=== PATIENT | male | born 1980 | race Caucasian/White ===

== ENCOUNTER → 2017-12-01 | Outpatient (CLI) | payer BC ==
--- NOTE | 2017-12-01 12:17 | ECHOS ---
STRESS ECHOCARDIOGRAM INDICATIONS: Chest pain. MEDICATIONS: Lisinopril. BASELINE HEART RATE: 75 BASELINE BLOOD PRESSURE: 116/68 MAXIMUM HEART RATE: 159 MAXIMUM BLOOD PRESSURE: 170/74 85% MPHR: 157 100% MPHR: 185 METS: 9.3 MAXIMUM STAGE REACHED: 3 TOTAL EXERCISE TIME: 7:55 CLINICAL INFORMATION: Patient was exercised for a total period of 7 minutes and 55 seconds. Peak heart rate of 159 was achieved. Maximum blood pressure of 170/74 mmHg was noted. Resting EKG shows normal sinus rhythm with normal p.r.n. interval and QRS duration and normal ST-T waves. No ST-segment depression suggestive of ischemia is noted. The baseline echocardiographic images reveals normal left ventricular chamber size with normal left ventricular systolic function in the immediate postexercise. Normal increase in the wall thickness and contractility is noted. FINAL IMPRESSION: This stress echocardiographic study is negative for stress-induced ischemia. EKG portion of the stress test is not suggestive of ischemia. Patient's exercise tolerance is average. MMODL / IJN: [id number] /
== END | disposition home or self-care (01) ==
LOC: RADNMMAIN 08:48
PROVIDERS: ATTEND Family Medicine
DX: R07.9 Chest pain, unspecified (principal)
CPT/HCPCS: 93351; Q9950

== ENCOUNTER → 2018-08-30 | Outpatient (CLI) | payer BC ==
--- NOTE | 2018-08-30 13:12 | XR ---
EXAMINATION TYPE: XR foot complete RT DATE OF EXAM: 08/30/2018 COMPARISON: NONE HISTORY: Pain TECHNIQUE: Three views are submitted. FINDINGS: The osseous structures are intact. There is no acute fracture or dislocation. There is arthropathy of the first MTP joint. Large spurs are seen involving the plantar surface of the calcaneus and the Achilles insertion. IMPRESSION: 1. Large calcaneal spurs. 2. First MTP joint arthropathy..
== END ==
LOC: RADXRYALE 12:34
PROVIDERS: ATTEND Internal Medicine
DX: M12.871 Other specific arthropathies, not elsewhere classified, right ankle and foot (principal)

== ENCOUNTER 2018-11-02 14:38 | Observation (INO) | payer BC ==
[2018-11-02] MEDS ORDERED: NITROGLYCERIN OINT 1 INCH/GM PACKET TOPICAL STA (15:37)
[2018-11-02] MEDS ORDERED: SODIUM CHLORIDE 0.9% 500 ML 500 ML IV STA (15:37)
[2018-11-02] MEDS ORDERED: ASPIRIN 81 MG PO STA (15:43)
--- NOTE | 2018-11-02 16:03 | ED ---
General Adult HPI - General Chief complaint: Shortness of Breath Stated complaint: chest pain Time Seen by Provider: 11/02/18 14:45 Source: patient, RN notes reviewed Mode of arrival: ambulatory Limitations: no limitations - History of Present Illness Initial comments: This is a 38-year-old male presents to the emergency department complaining of chest discomfort while exerting himself today. Patient states for the last couple of weeks she's been having some episodes of shortness of breath with exertion or when being in a very warm environment. Patient states today he went to work was lifting some 20 pounds items and states he began having chest pain mostly in the left side it was a heaviness sensation and he became short of breath and very diaphoretic. Patient states once he stopped working and rested the pain SUBSIDED as did the shortness of breath and sweating. Patient states he went to his family practice doctor and they wanted him to come to the emergency department immediately. Patient states she's been pain-free since. Calves are nontender there is no edema to the legs - Related Data Home Medications Medication Instructions Recorded Confirmed Ibuprofen [Motrin Ib] 400 mg PO TID PRN 11/02/18 11/02/18 Allergies Allergy/AdvReac Type Severity Reaction Status Date / Time No Known Allergies Allergy Verified 11/02/18 15:34 Review of Systems ROS Statement: Those systems with pertinent positive or pertinent negative responses have been documented in the HPI. ROS Other: All systems not noted in ROS Statement are negative. Past Medical History Past Medical History: Hypertension, Osteoarthritis (OA), Sleep Apnea/CPAP/BIPAP History of Any Multi-Drug Resistant Organisms: None Reported Past Surgical History: Hernia Repair Past Anesthesia/Blood Transfusion Reactions: No Reported Reaction Past Psychological History: No Psychological Hx Reported Smoking Status: Never smoker Past Alcohol Use History: Occasional Past Drug Use History: None Reported - Past Family History Mother Family Medical History: No Reported History General Exam - General Exam Comments Initial Comments: GENERAL: Patient is well-developed and well-nourished. Patient is nontoxic and well- hydrated and is in no acute distress. ENT: Neck is soft and supple. No significant lymphadenopathy is noted. Oropharynx is clear. Moist mucous membranes. Neck has full range of motion without eliciting any pain. EYES: The sclera were anicteric and conjunctiva were pink and moist. Extraocular movements were intact and pupils were equal round and reactive to light. Eyelids were unremarkable. PULMONARY: Unlabored respirations. Good breath sounds bilaterally. No audible rales rhonchi or wheezing was noted. CARDIOVASCULAR: There is a regular rate and rhythm without any murmurs gallops or rubs. ABDOMEN: Soft and nontender with normal bowel sounds. No palpable organomegaly was noted. There is no palpable pulsatile mass. SKIN: Skin is clear with no lesions or rashes and otherwise unremarkable. NEUROLOGIC: Patient is alert and oriented x3. Cranial nerves II through XII are grossly intact. Motor and sensory are also intact. Normal speech, volume and content. Symmetrical smile. MUSCULOSKELETAL: Normal extremities with adequate strength and full range of motion. No lower extremity swelling or edema. No calf tenderness. LYMPHATICS: No significant lymphadenopathy is noted PSYCHIATRIC: Normal psychiatric evaluation. Limitations: no limitations Course Vital Signs 11/02/18 14:41 Temperature 97.8 F Pulse Rate 85 Respiratory 18 Rate Blood Pressure 132/87 O2 Sat by Pulse 98 Oximetry Medical Decision Making - Medical Decision Making EKG shows normal sinus rhythm at 85 bpm LA interval is 160 QRS is 106 QT i nterval 364 QTC is 433. Patient's EKG shows no ST segment elevation or depression I went into the patient's room to reevaluate him in they noticed on the monitor the patient was in bigeminy she had repeat EKG repeat EKG showed sinus rhythm with frequent PVCs in a pattern of bigeminy rate was 86 bpm LA interval is 160 QRS is 108 QT interval 376 QTC is 449. Patient's EKG shows no ST segment eleva tion or depression or T wave abnormalities are noted. - Lab Data Result diagrams: 11/02/18 15:40 11/02/18 15:40 Lab Results 11/02/18 11/02/18 11/02/18 Range/Units 15:40 15:40 15:40 WBC 8.9 (3.8-10.6) k/uL RBC 5.42 (4.30-5.90) m/uL Hgb 16.6 (13.0-17.5) gm/dL Hct 48.9 (39.0-53.0) % MCV 90.2 (80.0-100.0) fL MCH 30.6 (25.0-35.0) pg MCHC 33.9 (31.0-37.0) g/dL RDW 12.9 (11.5-15.5) % Plt Count 233 (150-450) k/uL Neutrophils % 48 % Lymphocytes % 41 % Monocytes % 5 % Eosinophils % 4 % Basophils % 1 % Neutrophils # 4.3 (1.3-7.7) k/uL Lymphocytes # 3.7 (1.0-4.8) k/uL Monocytes # 0.5 (0-1.0) k/uL Eosinophils # 0.3 (0-0.7) k/uL Basophils # 0.1 (0-0.2) k/uL PT 9.5 (9.0-12.0) sec INR 0.9 (<1.2) APTT 23.7 (22.0-30.0) sec Sodium 140 (137-145) mmol/L Potassium 4.2 (3.5-5.1) mmol/L Chloride 103 (98-107) mmol/L Carbon Dioxide 27 (22-30) mmol/L Anion Gap 10 mmol/L BUN 12 (9-20) mg/dL Creatinine 0.67 (0.66-1.25) mg/dL Est GFR (CKD-EPI)AfAm >90 (>60 ml/min/1.73 sqM) Est GFR (CKD-EPI)NonAf >90 (>60 ml/min/1.73 sqM) Glucose 99 (74-99) mg/dL Calcium 9.8 (8.4-10.2) mg/dL Magnesium 2.1 (1.6-2.3) mg/dL Total Bilirubin 0.2 (0.2-1.3) mg/dL AST 50 (17-59) U/L ALT 42 (21-72) U/L Alkaline Phosphatase 60 (38-126) U/L Troponin I (0.000-0.034) ng/mL Total Protein 7.9 (6.3-8.2) g/dL Albumin 4.6 (3.5-5.0) g/dL 11/02/18 Range/Units 15:40 WBC (3.8-10.6) k/uL RBC (4.30-5.90) m/uL Hgb (13.0-17.5) gm/dL Hct (39.0-53.0) % MCV (80.0-100.0) fL MCH (25.0-35.0) pg MCHC (31.0-37.0) g/dL RDW (11.5-15.5) % Plt Count (150-450) k/uL Neutrophils % % Lymphocytes % % Monocytes % % Eosinophils % % Basophils % % Neutrophils # (1.3-7.7) k/uL Lymphocytes # (1.0-4.8) k/uL Monocytes # (0-1.0) k/uL Eosinophils # (0-0.7) k/uL Basophils # (0-0.2) k/uL PT (9.0-12.0) sec INR (<1.2) APTT (22.0-30.0) sec Sodium (137-145) mmol/L Potassium (3.5-5.1) mmol/L Chloride (98-107) mmol/L Carbon Dioxide (22-30) mmol/L Anion Gap mmol/L BUN (9-20) mg/dL Creatinine (0.66-1.25) mg/dL Est GFR (CKD-EPI)AfAm (>60 ml/min/1.73 sqM) Est GFR (CKD-EPI)NonAf (>60 ml/min/1.73 sqM) Glucose (74-99) mg/dL Calcium (8.4-10.2) mg/dL Magnesium (1.6-2.3) mg/dL Total Bilirubin (0.2-1.3) mg/dL AST (17-59) U/L ALT (21-72) U/L Alkaline Phosphatase (38-126) U/L Troponin I <0.012 (0.000-0.034) ng/mL Total Protein (6.3-8.2) g/dL Albumin (3.5-5.0) g/dL Disposition Clinical Impression: Chest pain, Bigeminy Disposition: ADMITTED IP TO THIS HOSP Referrals: Sonia Oviedo MD [Primary Care Provider] - 1-2 days Time of Disposition: 17:03
[2018-11-02 16:05] LABS: Basophils # (A) 0.1 k/uL (0-0.2); Basophils % (A) 1 %; Eosinophils # (A) 0.3 k/uL (0-0.7); Eosinophils % (A) 4 %; HCT 48.9 % (39.0-53.0); HGB 16.6 gm/dL (13.0-17.5); Lymphocytes # (A) 3.7 k/uL (1.0-4.8); Lymphocytes % (A) 41 %; MCH 30.6 pg (25.0-35.0); MCHC 33.9 g/dL (31.0-37.0); MCV 90.2 fL (80.0-100.0); Mean Platelet Volume 7.7; Monocytes # (A) 0.5 k/uL (0-1.0); Monocytes % (A) 5 %; Neutrophils # (A) 4.3 k/uL (1.3-7.7); Neutrophils % (A) 48 %; Platelet Count 233 k/uL (150-450); RBC 5.42 m/uL (4.30-5.90); RDW 12.9 % (11.5-15.5); WBC 8.9 k/uL (3.8-10.6)
[2018-11-02 16:14] LABS: ALT 42 U/L (21-72); AST 50 U/L (17-59); African American GFR (CKD) >90 (>60 ml/min/1.73 sqM); Albumin 4.6 g/dL (3.5-5.0); Alkaline Phosphatase 60 U/L (38-126); Anion Gap 10 mmol/L; Blood Urea Nitrogen 12 mg/dL (9-20); Calcium 9.8 mg/dL (8.4-10.2); Carbon Dioxide 27 mmol/L (22-30); Chloride 103 mmol/L (98-107); Glucose 99 mg/dL (74-99); Magnesium 2.1 mg/dL (1.6-2.3); Non-African American GFR(CKD) >90 (>60 ml/min/1.73 sqM); Potassium 4.2 mmol/L (3.5-5.1); Sodium 140 mmol/L (137-145); Total Bilirubin 0.2 mg/dL (0.2-1.3); Total Protein 7.9 g/dL (6.3-8.2)
[2018-11-02 16:19] LABS: INR 0.9 (<1.2); Partial Thromboplastin Time 23.7 sec (22.0-30.0); Prothrombin Time 9.5 sec (9.0-12.0)
--- NOTE | 2018-11-02 16:33 | XR ---
EXAMINATION TYPE: XR chest 2V DATE OF EXAM: 11/02/2018 COMPARISON: None INDICATION: Chest pain short of breath TECHNIQUE: Frontal and lateral views of the chest are obtained. FINDINGS: The heart size is normal. The pulmonary vasculature is normal. The lungs are clear. IMPRESSION: 1. No acute pulmonary process.
[2018-11-02] MEDS ORDERED: NITROGLYCERIN SL TABS 0.4 MG TAB SUBLINGUAL PRN (17:04)
[2018-11-02] MEDS ORDERED: IBUPROFEN 400 MG TAB PO PRN (18:19)
[2018-11-02 19:55] LABS: Appearance,Urine Clear (Clear); Bilirubin,Urine Negative (Negative); Blood,Urine Negative (Negative); Color,Urine Yellow; Glucose,Urine (UA) Negative (Negative); Ketones,Urine Negative (Negative); Leukocyte Esterase,Urine Trace (Negative); Mucus,Urine Rare /hpf; Nitrite,Urine Negative (Negative); PH, Urine 5.5 (5.0-8.0); Protein,Urine Negative (Negative); RBC,Urine 1 /hpf (0-5); Specific Gravity,Urine 1.024 (1.001-1.035); Squamous Epithelial Cell,Urine <1 /hpf (0-4); Urobilinogen,Urine <2.0 mg/dL (<2.0); WBC,Urine 8 /hpf (0-5)
[2018-11-02 20:02] LABS: Amphetamine Screen,Urine Not Detected (NotDetected); Barbiturate Screen,Urine Not Detected (NotDetected); Benzodiazepines Screen,Urine Not Detected (NotDetected); Cocaine Screen,Urine Not Detected (NotDetected); Methadone Screen, Urine Not Detected (NotDetected); Opiate Screen,Urine Not Detected (NotDetected); Oxycodone Screen, Urine Not Detected (NotDetected); Phencyclidine Screen,Urine Not Detected (NotDetected); Tricyclic Antidepressant,Urine Not Detected (NotDetected); Urn Cannabinoid Scrn Not Detected (NotDetected)
[2018-11-02] MEDS ORDERED: ALPRAZolam 0.25 MG TAB PO PRN (21:17)
[2018-11-02] MEDS: NITROGLYCERIN OINT 1 INCH/GM PACKET TOPICAL SCH ×2 (21:49→23:45)
--- NOTE | 2018-11-02 23:35 | HP ---
HISTORY AND PHYSICAL CHIEF COMPLAINT: 1. Chest pain, shortness of breath. 2. History of bigeminy. HISTORY OF PRESENT ILLNESS: This 38-year-old gentleman with a past medical history of multiple medical problems including history of hypertension, DJD, history of sleep apnea, being followed by Dr. Oviedo in the outpatient setting was complaining of chest pain, shortness of breath, the patient has had shortness of breath for the past several days on exertion and also environment. The patient is lifting some 20 pounds at weight at work and today the patient had chest pain which was felt in the anterior part of the chest and also shortness of breath. No history of any sweating or palpitations. Patient came to [facility] and was admitted for further evaluation and treatment. EKG showed ventricular bigeminy. Otherwise, there is no history of fever, rigors or chills. No history of headache, loss of consciousness or seizures. PAST MEDICAL HISTORY: Hypertension, DJD, sleep apnea. MEDICATIONS: Home medications are: Ibuprofen p.r.n. 400 mg. ALLERGIES: None. FAMILY HISTORY: No history of heart disease or strokes in the family. SOCIAL HISTORY: No history of smoking. Occasional alcohol intake. REVIEW OF SYSTEMS: ENT: No diminished vision. No diminished hearing. CARDIOVASCULAR system as mentioned earlier. RESPIRATION: As mentioned earlier. GI no nausea or vomiting. no dysuria. NERVOUS SYSTEM: No numbness or weakness. ALLERGY/IMMUNOLOGY: No asthma or hayfever. MUSCULOSKELETAL as mentioned earlier. HEMATOLOGY/ONCOLOGY: No history of anemia. ENDOCRINE: No history of diabetes or hypothyroidism. CONSTITUTIONAL: As mentioned earlier. DERMATOLOGY: Negative. RHEUMATOLOGY negative. PSYCHIATRY as mentioned earlier. PHYSICAL EXAMINATION: Alert and oriented times three. Pulse is 85, blood pressure 132/87, respiration 18, temperature 97.8, pulse ox 98% on room air. HEENT: Conjunctivae normal. NECK: No jugular venous distention. CARDIOVASCULAR: S1, S2 muffled. RESPIRATORY: Breath sounds diminished in the bases. No rhonchi. No crackles. ABDOMEN: Soft, obese, nontender. No mass palpable. LEGS: No edema. No swelling. NERVOUS SYSTEM as mentioned earlier. Moves all 4 limbs. No focal motor or sensory deficits. lymphatics: No lymph nodes palpable in the neck, axillae or groin. JOINTS: No active arthropathy. LABS: CBC and BMP within normal limits. Magnesium is also normal. ASSESSMENT: 1. Chest pain, shortness of breath for evaluation, rule out coronary artery disease. 2. Ventricular bigeminy. 3. History of hypertension. 4. History of degenerative joint disease. 5. Sleep apnea. 6. CPAP/BiPAP. 7. Obesity with body mass index 45. RECOMMENDATIONS AND DISCUSSION: In this 38-year-old gentleman with past medical history of multiple medical problems, we will monitor the patient closely, continue the current management, and symptomatic treatment. Otherwise, at this time, I recommend cardiology consultation rule out myocardial infarction. Unstable angina protocol. Otherwise, continue to monitor closely. Prognosis guarded because of multiple complex medical issues. A copy of dictation being forwarded to Dr. Oviedo who is the primary physician. I would also recommend D-dimer and if it is positive, a CT angio as well. MMODL / IJN: [id number] / MTDD
[2018-11-03 04:15] LABS: Basophils # (A) 0.1 k/uL (0-0.2); Basophils % (A) 1 %; Eosinophils # (A) 0.3 k/uL (0-0.7); Eosinophils % (A) 3 %; HCT 47.3 % (39.0-53.0); HGB 16.4 gm/dL (13.0-17.5); Lymphocytes # (A) 3.4 k/uL (1.0-4.8); Lymphocytes % (A) 38 %; MCHC 34.7 g/dL (31.0-37.0); MCV 92.2 fL (80.0-100.0); Mean Platelet Volume 7.6; Monocytes # (A) 0.4 k/uL (0-1.0); Monocytes % (A) 5 %; Neutrophils # (A) 4.6 k/uL (1.3-7.7); Neutrophils % (A) 51 %; Platelet Count 211 k/uL (150-450); RBC 5.13 m/uL (4.30-5.90); RDW 13.1 % (11.5-15.5); WBC 8.9 k/uL (3.8-10.6)
[2018-11-03 04:32] LABS: African American GFR (CKD) >90 (>60 ml/min/1.73 sqM); Anion Gap 10 mmol/L; Blood Urea Nitrogen 16 mg/dL (9-20); Calcium 9.2 mg/dL (8.4-10.2); Carbon Dioxide 27 mmol/L (22-30); Chloride 102 mmol/L (98-107); Cholesterol 160 mg/dL (<200); Glucose 86 mg/dL (74-99); HDL Cholesterol 31 mg/dL (40-60); Non-African American GFR(CKD) >90 (>60 ml/min/1.73 sqM); Sodium 139 mmol/L (137-145); Triglycerides 412 mg/dL (<150)
[2018-11-03] MEDS: NITROGLYCERIN OINT 1 INCH/GM PACKET TOPICAL SCH ×4 (04:36→23:57)
[2018-11-03 04:39] LABS: Potassium 4.6 mmol/L (3.5-5.1)
--- NOTE | 2018-11-03 10:15 | P.CRDCN ---
History of Present Illness History of present illness: Patient admitted and examined Presented with increasing shortness of breath for the last several weeks with average activities at work Intermittent recorded chest discomfort No palpitations no recent syncope Last year he had an episode of syncope while sitting on the couch Twelve-lead ECG shows sinus rhythm with ventricular bigeminy PVCs and a left bundle branch block morphology, notching on the downslope of the QRS in lead V1, upright in these to 3 aVF and upright M shaped in lead 1 and mostly negative and aVL. Transition in V3 Normal [place] narrow QRS on sinus beat no epsilon waves Normal hemoglobin normal electrolytes and normal d-dimer normal kidney function Triglycerides 412, HDL 31 3 serial troponins are normal Last year he underwent a stress echo which showed frequent PVCs and no nonsustained ventricular tachycardia on stress ECG. Stress echo did not show any evidence for ischemia I did have a detailed discussion with the patient I would recommend 2-D echo and Doppler study to assess RV and LV function TSH Hemoglobin A1c since he has a family history of diabetes, very strong, onset at an early age I discussed this with Dr. Ortega and recommended coronary angiography rather than stress testing Thereafter outpatient evaluation of syncope and shortness of breath/left bundle PVCs Please see full dictation by Chery Dow PA-c Past Medical History Past Medical History: Hypertension, Osteoarthritis (OA), Sleep Apnea/CPAP/BIPAP Additional Past Medical History / Comment(s): Carpel Tunnel in both hands History of Any Multi-Drug Resistant Organisms: None Reported Past Surgical History: Hernia Repair Past Anesthesia/Blood Transfusion Reactions: No Reported Reaction Smoking Status: Never smoker - Past Family History Mother Family Medical History: No Reported History Medications and Allergies Home Medications Medication Instructions Recorded Confirmed Type Ibuprofen [Motrin Ib] 400 mg PO TID PRN 11/02/18 11/02/18 History Allergies Allergy/AdvReac Type Severity Reaction Status Date / Time No Known Allergies Allergy Verified 11/02/18 21:56 Physical Exam Vitals: Vital Signs Temp Pulse Pulse Resp BP BP Pulse Ox 11/03/18 08:00 98.2 F 81 17 138/92 97 11/03/18 04:00 98.2 F 87 16 136/90 94 L 11/03/18 03:54 16 11/03/18 00:00 97.9 F 76 16 115/62 93 L 11/02/18 23:40 18 11/02/18 21:28 98 F 89 18 124/85 95 11/02/18 20:00 18 11/02/18 19:50 100 18 135/73 100 11/02/18 14:41 97.8 F 85 18 132/87 98 Intake and Output 11/02/18 11/03/18 11/03/18 22:59 06:59 14:59 Other: # Voids 1 Results 11/03/18 03:40 11/03/18 03:40 Cardiac Enzymes 11/02/18 11/02/18 11/02/18 Range/Units 15:40 15:40 21:51 AST 50 (17-59) U/L Troponin I <0.012 <0.012 (0.000-0.034) ng/mL 11/03/18 Range/Units 03:40 AST (17-59) U/L Troponin I <0.012 (0.000-0.034) ng/mL Coagulation 11/02/18 Range/Units 15:40 PT 9.5 (9.0-12.0) sec APTT 23.7 (22.0-30.0) sec Lipids 11/03/18 Range/Units 03:40 Triglycerides 412 H (<150) mg/dL Cholesterol 160 (<200) mg/dL HDL Cholesterol 31 L (40-60) mg/dL CBC 11/02/18 11/03/18 Range/Units 15:40 03:40 WBC 8.9 8.9 (3.8-10.6) k/uL RBC 5.42 5.13 (4.30-5.90) m/uL Hgb 16.6 16.4 (13.0-17.5) gm/dL Hct 48.9 47.3 (39.0-53.0) % Plt Count 233 211 (150-450) k/uL Comprehensive Metabolic Panel 11/02/18 11/03/18 Range/Units 15:40 03:40 Sodium 140 139 (137-145) mmol/L Potassium 4.2 4.6 (3.5-5.1) mmol/L Chloride 103 102 (98-107) mmol/L Carbon Dioxide 27 27 (22-30) mmol/L BUN 12 16 (9-20) mg/dL Creatinine 0.67 0.76 (0.66-1.25) mg/dL Glucose 99 86 (74-99) mg/dL Calcium 9.8 9.2 (8.4-10.2) mg/dL AST 50 (17-59) U/L ALT 42 (21-72) U/L Alkaline Phosphatase 60 (38-126) U/L Total Protein 7.9 (6.3-8.2) g/dL Albumin 4.6 (3.5-5.0) g/dL Current Medications Generic Name Dose Route Start Last Admin Trade Name Freq PRN Reason Stop Dose Admin Alprazolam 0.25 mg 11/02/18 21:17 Xanax PO TID PRN Anxiety Aspirin 325 mg 11/03/18 09:00 Aspirin PO DAILY [facility] Heparin Sodium (Porcine) 5,000 unit 11/03/18 09:00 Heparin SQ Q12HR [facility] Ibuprofen 400 mg 11/02/18 18:19 Motrin PO TID PRN Pain Nitroglycerin 1 inch 11/02/18 19:30 11/03/18 04:36 Nitro-Bid Oint TOPICAL Not Given Q6HR [facility] Nitroglycerin 0.4 mg 11/02/18 17:04 Nitrostat SUBLINGUAL Q5M PRN Chest Pain Pantoprazole Sodium 40 mg 11/03/18 07:30 Protonix PO AC-BRKFST [facility] Intake and Output 11/02/18 11/03/18 11/03/18 22:59 06:59 14:59 Other: # Voids 1 11/03/18 03:40 11/03/18 03:40
--- NOTE | 2018-11-03 10:17 | P.CRDCN ---
<Chery Dow - Last Filed: 11/03/18 09:38> History of Present Illness History of present illness: This is Chery Dow PA-C dictating a consult on this patient The patient was interviewed and examined by me as well as by Dr. Llanos Case discussed with Dr. Llanos and he agrees with the plan of care IMPRESSION / ASSESSMENT: Atypical chest discomfort, troponins negative 3, EKG shows frequent PVCs Shortness of breath, possibly related to frequent PVCs versus ischemia Ventricular bigeminy History of hypertension, not currently on any home blood pressure medications, some elevated blood pressure readings during this admission PLAN: Check TSH, hemoglobin A1c,Direct LDL 2-D echo and Doppler study to evaluate cardiac structure and function Plan for coronary angiogram tomorrow to rule out ischemia as a cause of his shortness of breath and frequent PVCs Start atorvastatin 20 mg daily Start lisinopril 5 mg daily HPI Patient is a 38-year-old male with past medical history significant for ar thritis who presented with complaints of shortness of breath and chest discomfort. He has had worsening shortness of breath on exertion for the last 2-3 weeks and has felt tired and rundown for the last 2-3 days. He was having difficulty breathing when doing tasks that normally wouldn't make him short of breath such as climbing the stairs. Yesterday he was lifting boxes and experienced a sudden onset of chest heaviness with associated diaphoresis. Denies dizziness, lightheadedness or syncope. He did have a syncopal episode last November. He states he was on the couch and got into an argument with his and then passed out. His thought he was faking it but then realized he really was unconscious and called an ambulance. He underwent workup with a stress echocardiogram was negative. He has not had any episodes since. He went to see his PCP for the chest discomfort and shortness of breath and was sent to the emergency department for further evaluation. Upon admission his vital signs were stable. His EKG showed sinus mechanism with frequent PVCs in a bigeminy pattern. His troponins and d-dimer were negative. Patient seen and examined resting in bed. His chest pain has resolved but he continues to have some shortness of breath with exertion. Denies any dizziness or lightheadedness or palpitations. Does have a slight headache. He was treated with lisinopril in the past for his blood pressure was taken off it and his PCP has been monitoring his blood pressure denies history of diabetes Patient is not a smoker himself but has been exposed to secondhand smoke his entire life Patient has no family history of coronary artery disease but he does have a shor tened family history of diabetes He drinks alcohol occasionally ROS: No fevers, chills or rigors, no cough, phlegm or expectoration, no nausea, vomiting or diarrhea, no hematuria, dysuria, Positive for heel spurs, bilateral arthritis in knees, back pain no strokes or seizures, no skin lesions. EXAMINATION: Temperature 98.2F, pulse 81, respirations 17, blood pressure 138/92, oxygen saturation 97% on room air Patient seen and examined resting comfortably in bed, in no acute distress Lungs are clear to auscultation bilaterally, no wheezing rhonchi or crackles appreciated Heart sounds are regular, normal S1-S2, no murmurs, rubs or gallops appreciated No elevated JVD noted Trace lower extremity edema bilaterally REVIEW OF LABS, ECG & MEDICAL DATA Chest x-ray showed no acute pulmonary process Stress echo in November 2017 was negative for inducible ischemia D-dimer negative, troponins negative 3 WBC 8.9, hemoglobin 16.4, platelets 211, potassium 4.6, BUN 16, creatinine 0.76, magnesium 2.1 Total cholesterol 160, triglycerides 412, HDL 31, LDL was not calculated due to high triglycerides Past Medical History Past Medical History: Hypertension, Osteoarthritis (OA), Sleep Apnea/CPAP/BIPAP Additional Past Medical History / Comment(s): Carpel Tunnel in both hands History of Any Multi-Drug Resistant Organisms: None Reported Past Surgical History: Hernia Repair Past Anesthesia/Blood Transfusion Reactions: No Reported Reaction Smoking Status: Never smoker - Past Family History Mother Family Medical History: No Reported History Medications and Allergies Home Medications Medication Instructions Recorded Confirmed Type Ibuprofen [Motrin Ib] 400 mg PO TID PRN 11/02/18 11/02/18 History Allergies Allergy/AdvReac Type Severity Reaction Status Date / Time No Known Allergies Allergy Verified 11/02/18 21:56 Physical Exam Vitals: Vital Signs Temp Pulse Pulse Resp BP BP Pulse Ox 11/03/18 08:00 98.2 F 81 17 138/92 97 11/03/18 04:00 98.2 F 87 16 136/90 94 L 11/03/18 03:54 16 11/03/18 00:00 97.9 F 76 16 115/62 93 L 11/02/18 23:40 18 11/02/18 21:28 98 F 89 18 124/85 95 11/02/18 20:00 18 11/02/18 19:50 100 18 135/73 100 11/02/18 14:41 97.8 F 85 18 132/87 98 Intake and Output 11/02/18 11/03/18 11/03/18 22:59 06:59 14:59 Other: # Voids 1 Results 11/03/18 03:40 11/03/18 03:40 Cardiac Enzymes 11/02/18 11/02/18 11/02/18 Range/Units 15:40 15:40 21:51 AST 50 (17-59) U/L Troponin I <0.012 <0.012 (0.000-0.034) ng/mL 11/03/18 Range/Units 03:40 AST (17-59) U/L Troponin I <0.012 (0.000-0.034) ng/mL Coagulation 11/02/18 Range/Units 15:40 PT 9.5 (9.0-12.0) sec APTT 23.7 (22.0-30.0) sec Lipids 11/03/18 Range/Units 03:40 Triglycerides 412 H (<150) mg/dL Cholesterol 160 (<200) mg/dL HDL Cholesterol 31 L (40-60) mg/dL CBC 11/02/18 11/03/18 Range/Units 15:40 03:40 WBC 8.9 8.9 (3.8-10.6) k/uL RBC 5.42 5.13 (4.30-5.90) m/uL Hgb 16.6 16.4 (13.0-17.5) gm/dL Hct 48.9 47.3 (39.0-53.0) % Plt Count 233 211 (150-450) k/uL Comprehensive Metabolic Panel 11/02/18 11/03/18 Range/Units 15:40 03:40 Sodium 140 139 (137-145) mmol/L Potassium 4.2 4.6 (3.5-5.1) mmol/L Chloride 103 102 (98-107) mmol/L Carbon Dioxide 27 27 (22-30) mmol/L BUN 12 16 (9-20) mg/dL Creatinine 0.67 0.76 (0.66-1.25) mg/dL Glucose 99 86 (74-99) mg/dL Calcium 9.8 9.2 (8.4-10.2) mg/dL AST 50 (17-59) U/L ALT 42 (21-72) U/L Alkaline Phosphatase 60 (38-126) U/L Total Protein 7.9 (6.3-8.2) g/dL Albumin 4.6 (3.5-5.0) g/dL Current Medications Generic Name Dose Route Start Last Admin Trade Name Freq PRN Reason Stop Dose Admin Alprazolam 0.25 mg 11/02/18 21:17 Xanax PO TID PRN Anxiety Aspirin 325 mg 11/03/18 09:00 Aspirin PO DAILY [facility] Heparin Sodium (Porcine) 5,000 unit 11/03/18 09:00 Heparin SQ Q12HR [facility] Ibuprofen 400 mg 11/02/18 18:19 Motrin PO TID PRN Pain Nitroglycerin 1 inch 11/02/18 19:30 11/03/18 04:36 Nitro-Bid Oint TOPICAL Not Given Q6HR [facility] Nitroglycerin 0.4 mg 11/02/18 17:04 Nitrostat SUBLINGUAL Q5M PRN Chest Pain Pantoprazole Sodium 40 mg 11/03/18 07:30 Protonix PO AC-BRKFST [facility] Intake and Output 11/02/18 11/03/18 11/03/18 22:59 06:59 14:59 Other: # Voids 1 11/03/18 03:40 11/03/18 03:40 <Jerry Llanos - Last Filed: 11/03/18 10:17> Physical Exam Vitals: Vital Signs Temp Pulse Pulse Resp BP BP Pulse Ox 11/03/18 08:00 98.2 F 81 17 138/92 97 11/03/18 04:00 98.2 F 87 16 136/90 94 L 11/03/18 03:54 16 11/03/18 00:00 97.9 F 76 16 115/62 93 L 11/02/18 23:40 18 11/02/18 21:28 98 F 89 18 124/85 95 11/02/18 20:00 18 11/02/18 19:50 100 18 135/73 100 11/02/18 14:41 97.8 F 85 18 132/87 98 Intake and Output 11/02/18 11/03/18 11/03/18 22:59 06:59 14:59 Other: # Voids 1 Results 11/03/18 03:40 11/03/18 03:40 Cardiac Enzymes 11/02/18 11/02/18 11/02/18 Range/Units 15:40 15:40 21:51 AST 50 (17-59) U/L Troponin I <0.012 <0.012 (0.000-0.034) ng/mL 11/03/18 Range/Units 03:40 AST (17-59) U/L Troponin I <0.012 (0.000-0.034) ng/mL Coagulation 11/02/18 Range/Units 15:40 PT 9.5 (9.0-12.0) sec APTT 23.7 (22.0-30.0) sec Lipids 11/03/18 Range/Units 03:40 Triglycerides 412 H (<150) mg/dL Cholesterol 160 (<200) mg/dL HDL Cholesterol 31 L (40-60) mg/dL CBC 11/02/18 11/03/18 Range/Units 15:40 03:40 WBC 8.9 8.9 (3.8-10.6) k/uL RBC 5.42 5.13 (4.30-5.90) m/uL Hgb 16.6 16.4 (13.0-17.5) gm/dL Hct 48.9 47.3 (39.0-53.0) % Plt Count 233 211 (150-450) k/uL Comprehensive Metabolic Panel 11/02/18 11/03/18 Range/Units 15:40 03:40 Sodium 140 139 (137-145) mmol/L Potassium 4.2 4.6 (3.5-5.1) mmol/L Chloride 103 102 (98-107) mmol/L Carbon Dioxide 27 27 (22-30) mmol/L BUN 12 16 (9-20) mg/dL Creatinine 0.67 0.76 (0.66-1.25) mg/dL Glucose 99 86 (74-99) mg/dL Calcium 9.8 9.2 (8.4-10.2) mg/dL AST 50 (17-59) U/L ALT 42 (21-72) U/L Alkaline Phosphatase 60 (38-126) U/L Total Protein 7.9 (6.3-8.2) g/dL Albumin 4.6 (3.5-5.0) g/dL Current Medications Generic Name Dose Route Start Last Admin Trade Name Freq PRN Reason Stop Dose Admin Alprazolam 0.25 mg 11/02/18 21:17 Xanax PO TID PRN Anxiety Aspirin 325 mg 11/03/18 09:00 Aspirin PO DAILY [facility] Heparin Sodium (Porcine) 5,000 unit 11/03/18 09:00 Heparin SQ Q12HR [facility] Ibuprofen 400 mg 11/02/18 18:19 Motrin PO TID PRN Pain Nitroglycerin 1 inch 11/02/18 19:30 11/03/18 04:36 Nitro-Bid Oint TOPICAL Not Given Q6HR [facility] Nitroglycerin 0.4 mg 11/02/18 17:04 Nitrostat SUBLINGUAL Q5M PRN Chest Pain Pantoprazole Sodium 40 mg 11/03/18 07:30 Protonix PO AC-BRKFST [facility] Intake and Output 11/02/18 11/03/18 11/03/18 22:59 06:59 14:59 Other: # Voids 1 11/03/18 03:40 11/03/18 03:40
[2018-11-03] MEDS ORDERED: ALPRAZolam 0.25 MG TAB PO PRN (10:29)
[2018-11-03] MEDS ORDERED: ALPRAZolam 0.5 MG TAB PO PRN (10:29)
[2018-11-03] MEDS ORDERED: NITROGLYCERIN SL TABS 0.4 MG TAB SUBLINGUAL PRN (10:29)
[2018-11-03] MEDS ORDERED: SODIUM CHLORIDE 0.9% 1,000 ML in EMPTY BAG 1 BAG IV ONE (10:29)
[2018-11-03] MEDS: HEPARIN SODIUM,PORCINE 5,000 UNIT/ML 1 ML VIAL SQ SCH ×2 (10:35→20:44)
[2018-11-03] MEDS: PANTOPRAZOLE 40 MG TABLET PO SCH (10:35)
[2018-11-03] MEDS: ASPIRIN 325 MG TAB PO SCH ×2 (10:35→10:39)
[2018-11-03] MEDS: LISINOPRIL 5 MG TAB PO SCH (10:48)
--- NOTE | 2018-11-03 13:22 | ECHOF ---
Referral Reason:bigemini MEASUREMENTS -------- HEIGHT: 182.9 cm WEIGHT: 152.0 kg BP: 136/80 IVSd: 1.3 cm (0.6 - 1.1) LVIDd: 4.9 cm (3.9 - 5.3) LVPWd: 1.3 cm (0.6 - 1.1) IVSs: 1.4 cm LVIDs: 4.0 cm LVPWs: 1.5 cm LA Diam: 4.3 cm (2.7 - 3.8) RVIDd: 3.3 cm (< 3.3) Ao Diam: 3.3 cm (2.0 - 3.7) LA Diam: 4.7 cm (2.7 - 3.8) AV Cusp: 2.2 cm (1.5 - 2.6) EPSS: 0.6 cm MV E Dex: 0.26 m/s MV DecT: 205 ms MV A Dex: 0.66 m/s MV E/A Ratio: 0.39 RAP: 5.00 mmHg RVSP: 14.20 mmHg MV EF SLOPE: 72.22 mm/s (70 - 150) MV EXCURSION: 19.91 mm (> 18.000) FINDINGS -------- Undetermined rhythm. Morbid Obesity This was a techncally difficult study with suboptimal views, , Lumason utilized for enhancement of im ages. The left ventricular size is normal. Left ventricular wall thickness is normal. Overall left vent ricular systolic function is mild-moderately impaired with, an EF between 40 - 45 %. The right ventricle is normal in size. The left atrium is mildly dilated. The right atrial size is normal. 5.0mg OF Lumason UTLIZED: 2 OR MORE WALL SEGMENTS NOT VISUALIZED. There is mild aortic valve sclerosis. Mild mitral regurgitation is present. Mild tricuspid regurgitation present. There is no evidence of pulmonary hypertension. The right v entricular systolic pressure, as measured by Doppler, is 14.20mmHg. There is no pulmonic regurgitation present. The aortic root size is normal. There is no pericardial effusion. CONCLUSIONS -------- 1. Undetermined rhythm. 2. Morbid Obesity 3. This was a techncally difficult study with suboptimal views, , Lumason utilized for enhancement of images. 4. The left ventricular size is normal. 5. Left ventricular wall thickness is normal. 6. Overall left ventricular systolic function is mild-moderately impaired with, an EF between 40 - 45 %. 7. The right ventricle is normal in size. 8. The left atrium is mildly dilated. 9. The right atrial size is normal. 10. 5.0mg OF Lumason UTLIZED: 2 OR MORE WALL SEGMENTS NOT VISUALIZED. 11. There is mild aortic valve sclerosis. 12. Mild mitral regurgitation is present. 13. Mild tricuspid regurgitation present. 14. There is no evidence of pulmonary hypertension. 15. The right ventricular systolic pressure, as measured by Doppler, is 14.20mmHg. 16. There is no pulmonic regurgitation present. 17. The aortic root size is normal. 18. There is no pericardial effusion. HEAD BOOKKEEPER: Do Rodgers RDCS
[2018-11-03 17:21] LABS: Hemoglobin A1C 5.8 % (4.0-6.0)
--- NOTE | 2018-11-03 17:45 | PN ---
PROGRESS NOTE DATE IS SERVICE: 11/03/2018 DATE OF SERVICE: This 38-year-old gentleman who was admitted with chest pain and bigeminy is being closely monitored at this time. Cardiology planning a cardiac catheterization. A 2D echo with Doppler was done which showed ejection fraction about 40-45 percent with mild impairment of the LV function. No chest pain. No palpitations. No fever. PHYSICAL EXAM: Alert and oriented x2. Pulse 77. Blood pressure 130/83, respiration 17, temperature 98 degrees, pulse ox 98% on room air. HEENT: Conjunctivae normal. NECK: No jugular venous distention. CARDIOVASCULAR: S1, S2 muffled. RESPIRATIONS: Breath sounds diminished in the bases. No rhonchi. No crackles. ABDOMEN is soft, obese, nontender. LEGS: No edema. No swelling. NERVOUS SYSTEM: No focal deficits. LABORATORY DATA: CBC, BMP within normal limits and triglycerides 412. ASSESSMENT: 1. Chest pain, shortness of breath, rule out coronary artery disease. 2. Ventricular bigeminy. 3. Previous PVCs and nonsustained tachycardia during the stress test. 4. Possible cardiomyopathy with chronic systolic dysfunction, ejection fraction 40-45 percent. 5. History of hypertension. 6. History of degenerative joint disease. 7. History of sleep apnea. 8. History of CPAP on BiPAP. 9. Obesity with body mass index of 45. RECOMMENDATIONS AND DISCUSSION: In this 38-year-old gentleman who presented with multiple complex medical issues, we will monitor the patient closely, continue the current medications, management and symptomatic treatment. Cardiology performing a cardiac catheterization tomorrow. Guarded prognosis. Further recommendations to follow. MMODL / IJN: [id number] /
[2018-11-03] MEDS ORDERED: ATORVASTATIN 20 MG TAB PO SCH (21:00)
[2018-11-04] MEDS: NITROGLYCERIN OINT 1 INCH/GM PACKET TOPICAL SCH ×2 (04:35→08:00)
[2018-11-04] MEDS: HEPARIN SODIUM,PORCINE 5,000 UNIT/ML 1 ML VIAL SQ SCH (04:36)
[2018-11-04] MEDS ORDERED: ATORVASTATIN 80 MG TAB PO ONE (06:00)
[2018-11-04] MEDS ORDERED: ASPIRIN 325 MG TAB PO ONE (06:00)
[2018-11-04] MEDS: LISINOPRIL 5 MG TAB PO SCH (06:17)
[2018-11-04] MEDS: PANTOPRAZOLE 40 MG TABLET PO SCH (06:17)
[2018-11-04] MEDS ORDERED: SODIUM CHLORIDE 0.9% 1,000 ML IV ONE (08:50)
[2018-11-04] MEDS ORDERED: MIDAZOLAM PF (FBP) 2 MG/2 ML VIAL IV ONE (08:56)
[2018-11-04] MEDS ORDERED: LIDOCAINE 1% INJ 10MG/ML (20 ML MDV) SQ ONE (08:57)
[2018-11-04] MEDS: VERAPAMIL SYRINGE (5 MG/10 ML) INTRAARTER ONE ×2 (08:59→09:06)
[2018-11-04] MEDS ORDERED: HEPARIN SODIUM 1,000 UN/ML (10ML VL) IV ONE (09:00)
[2018-11-04] MEDS ORDERED: HYDROmorphone 1 MG/ML 1 ML SYRINGE IVP ONE (09:02)
[2018-11-04] MEDS ORDERED: IOPAMIDOL-370 125ML BTL INJ ONE (09:10)
[2018-11-04] MEDS ORDERED: RX INFO: IV CONTRAST WAS GIVEN 1 EACH MISC MISCELLANE PRN (09:12)
[2018-11-04] MEDS ORDERED: SODIUM CHLORIDE 0.9% 1,000 ML IV SCH (09:15)
[2018-11-04 09:39] VITALS: RESP 18; TEMP 97.4
[2018-11-04 09:56] LABS: Basophils # (A) 0.1 k/uL (0-0.2); Basophils % (A) 1 %; Eosinophils # (A) 0.3 k/uL (0-0.7); Eosinophils % (A) 4 %; HCT 48.7 % (39.0-53.0); HGB 16.5 gm/dL (13.0-17.5); Lymphocytes # (A) 2.7 k/uL (1.0-4.8); Lymphocytes % (A) 40 %; MCH 31.5 pg (25.0-35.0); MCHC 33.8 g/dL (31.0-37.0); MCV 93.1 fL (80.0-100.0); Monocytes # (A) 0.3 k/uL (0-1.0); Monocytes % (A) 4 %; Neutrophils # (A) 3.3 k/uL (1.3-7.7); Neutrophils % (A) 48 %; Platelet Count 200 k/uL (150-450); RBC 5.24 m/uL (4.30-5.90); RDW 14.9 % (11.5-15.5); WBC 6.9 k/uL (3.8-10.6)
--- NOTE | 2018-11-04 10:01 | CC ---
CARDIAC CATHETERIZATION REPORT DATE OF SERVICE: November 04, 2018 PERFORMING PHYSICIAN: Franck Carter MD, tug boat captain. PROCEDURE PERFORMED: 1. Selective right and left coronary angiogram. 2. Left heart catheterization. INDICATION: This is a 38-year-old gentleman who was admitted to the OBS unit with chest discomfort and was seen by Dr. Llanos. The patient admitted with chest discomfort concerning for angina. A heart catheterization was advised. APPROACH: Right radial artery. COMPLICATION: None. LEVEL OF SEDATION: Moderate with sedation length of 11 minutes. PROCEDURE DESCRIPTION: After obtaining an informed consent, the patient was brought to the cardiac photonic laboratory technician. The right radial artery was cannulated using micropuncture technique, the micropuncture wire passed easily then I placed a 5-Welsh sheath. After that I gave the patient 10,000 units of heparin IV. I did selective right and left coronary angiogram using JR4 and JL3.5 catheters. Left heart catheterization was performed using the JR4 catheter which flipped into the LV then I did pullback across aortic valve. The procedure was completed without any complication. SELECTIVE CORONARY ANGIOGRAM: 1. The right coronary artery is a large caliber vessel. It is a dominant vessel and appeared to be angiographically normal. It distally bifurcates into PDA and PLV branches, both appeared to be angiographically normal. 2. The left main is angiographically normal. It bifurcates into the left circumflex and left anterior descending artery. 3. Left circumflex is a large caliber vessel. It is a codominant vessel and appeared to be angiographically normal. 4. The LAD: The LAD is angiographically normal. In the proximal portion, it gives rise into a large diagonal branch which seems to be normal and distally appeared to be normal as well. HEMODYNAMICS: The left ventricular end-diastolic pressure was 12 mmHg and no significant gradient across the aortic valve. CONCLUSION: 1. Normal coronary angiogram. 2. Mildly elevated left ventricular end-diastolic pressure. POSTPROCEDURE MANAGEMENT: 1. Medical treatment. 2. Follow up with Dr. Llanos. MMODL / IJN: [id number] /
[2018-11-04 10:05] LABS: African American GFR (CKD) >90 (>60 ml/min/1.73 sqM); Anion Gap 10 mmol/L; Blood Urea Nitrogen 12 mg/dL (9-20); Calcium 8.8 mg/dL (8.4-10.2); Carbon Dioxide 26 mmol/L (22-30); Chloride 104 mmol/L (98-107); Glucose 113 mg/dL (74-99); Non-African American GFR(CKD) >90 (>60 ml/min/1.73 sqM); Potassium 4.7 mmol/L (3.5-5.1); Sodium 140 mmol/L (137-145)
[2018-11-04] MEDS ORDERED: CARVEDILOL 3.125 MG TAB PO SCH (11:15)
[2018-11-04] MEDS ORDERED: FENOFIBRATE 160 MG TAB PO SCH (11:15)
[2018-11-04 12:28] VITALS: BP 120/56; PULSE 94
--- NOTE | 2018-11-04 13:11 | P.PN ---
Subjective This is Chery Dow PA-C dictating a progress note on this patient The patient was interviewed and examined by me as well as by Dr. Llanos Case discussed with Dr. Llanos and he agrees with the plan of care IMPRESSION / ASSESSMENT: Progressive shortness of breath possibly secondary to nonischemic cardiomyopathy versus frequent PVCs, coronary angiography showed normal coronary arteries Acute Mild systolic CHF, EF 40-45% elevated triglycerides Hypertension, blood pressure stable PLAN: Stop Aspirin Hold atorvastatin for now, start fenofibrate for elevated triglycerides, can recheck lipid panel as an outpatient to evaluate LDL Recommend outpatient Sleep study Continue lisinopril and start low-dose beta belkis for cardiomyopathy, start carvedilol 3.125 Patient is clear for discharge from a cardiac standpoint, follow-up outpatient for Holter monitor to assess PVC burden HPI/interval history Patient is a 38-year-old male with no significant past medical history who presented with complaints of progressive shortness of breath and chest discomfort. Ventricular bigeminy and frequent PVCs were noted on his EKG and telemetry. He underwent coronary angiography which showed normal coronary arteries. His echocardiogram showed mild to moderately impaired systolic function, EF 40-45%. Patient seen and examined resting comfortably in bed. Denies chest pain. States his breathing is about the same. Denies dizziness, lightheadedness or syncope. EXAMINATION Patient is afebrile, pulse 94, blood pressure 120/56, respirations 18, oxygen saturation 97% on room air Patient seen and examined resting comfortably in bed Heart is regular, normal S1 and S2 no murmurs appreciated Lungs clear to auscultation bilaterally REVIEW OF LABS, ECG Coronary angiogram showed normal coronary arteries Mildly elevated left ventricular end-diastolic pressure Echocardiogram showed normal LV size and thickness, overall LV systolic function mildly to moderately impaired EF 40-45%, no significant valvular abnormalities WBC 6.9, hemoglobin 16.5, potassium 4.7, BUN 12, creatinine 0.68 Lipid panel showed total cholesterol 160, triglycerides 412, HDL 31 TSH within normal limits D dimer and troponins negative 3 Hemoglobin A1c 5.8 Objective - Vital Signs Vital signs: Vital Signs Temp 97.4 F L 11/04/18 08:00 Pulse 94 11/04/18 11:30 Resp 18 11/04/18 08:00 BP 120/56 11/04/18 11:30 Pulse Ox 97 11/04/18 08:00 Intake & Output 11/03/18 11/04/18 11/04/18 18:59 06:59 18:59 Intake Total 150 Balance 150 Intake: IV 150 Other: # Voids 1 1 - Labs CBC & Chem 7: 11/04/18 09:26 11/04/18 09:26 Labs: Abnormal Lab Results - Last 24 Hours (Table) 11/04/18 Range/Units 09:26 Glucose 113 H (74-99) mg/dL
--- NOTE | 2018-11-05 09:35 | DS ---
DISCHARGE SUMMARY DATE OF SERVICE: 11/04/2018. FINAL DIAGNOSES: 1. Chest pain, possibly musculoskeletal. Myocardial infarction ruled out. Negative cardiac catheterization. 2. Ventricular bigeminy. 3. Possible cardiomyopathy with chronic systolic dysfunction ejection fraction 40-45 percent. 4. Hypertension. 5. Degenerative joint disease. 6. Sleep apnea on CPAP and BiPAP. 7. Obesity with body mass index of 45. 8. Hypertriglyceridemia. DISCHARGE DISPOSITION: The patient will be discharged in stable condition with guarded prognosis. HISTORY OF PRESENT ILLNESS: This 38-year-old gentleman with a past medical history of multiple medical problems as mentioned, being followed Dr. Oviedo in the outpatient setting was admitted with chest pain. Myocardial infarction ruled out. The patient underwent cardiac catheterization which was found to have normal coronary arteries. However, 2D echo showed ejection fraction 40-45 percent. The possibility of cardiomyopathy was considered and Cardiology recommended outpatient followup. On exam, vitals signs are stable. Cardiovascular: S1, S2. Abdomen soft. Nervous system: No focal deficits. Lab quezada, CBC BMP within normal limits. Triglycerides 412. DISCHARGE ADVICE AND MEDICATIONS: 1. Diet is cardiac diet. 2. Activity limited until followup. 3. Follow up with Dr. Oviedo in 2-3 days. 4. Follow up with Cardiology as recommended. DISCHARGE MEDICATIONS: 1. Motrin p.r.n. 2. Lipitor 20 mg q.h.s. 3. Zestril 5 mg p.o. daily. The patient will need followup 2D echocardiogram in the outpatient setting. MMODL / IJN: [id number] /
== END 2018-11-04 11:55 | disposition home or self-care (01) ==
LOC: EC 14:38 → 1SOBS 17:28
PROVIDERS: ADMIT Hospitalist; ATTEND Hospitalist
DX: R07.89 Other chest pain (principal); R06.02 Shortness of breath; R06.00 Dyspnea, unspecified; R61 Generalized hyperhidrosis; R51 Headache; R00.8 Other abnormalities of heart beat; M19.90 Unspecified osteoarthritis, unspecified site; I10 Essential (primary) hypertension; G47.30 Sleep apnea, unspecified; Z99.89 Dependence on other enabling machines and devices; E66.01 Morbid (severe) obesity due to excess calories; Z68.42 Body mass index [BMI] 45.0-49.9, adult; E78.1 Pure hyperglyceridemia; G56.03 Carpal tunnel syndrome, bilateral upper limbs; I49.3 Ventricular premature depolarization; R00.0 Tachycardia, unspecified; Z79.1 Long term (current) use of non-steroidal anti-inflammatories (NSAID); Z83.3 Family history of diabetes mellitus
CPT/HCPCS: 96372; 96360; 99285; 36415; 93005; 93306; 93458; 85379; 80061; 80053; 80048 ×2; 84443; 83735; 84484 ×2; 85025 ×3; 85610; 85730; 81001; 80306; 83036; 71046; G0378 ×3; C1769; C1894; J1644 ×2; J2001; J1170; Q9950; Q9967; J2250

== ENCOUNTER → 2019-11-02 | Outpatient (CLI) | payer BC ==
--- NOTE | 2019-11-02 13:24 | XR ---
EXAMINATION TYPE: XR ankle complete RT DATE OF EXAM: 11/02/2019 COMPARISON: 08/30/2018 HISTORY: Pain and swelling FINDINGS: Three views of the ankle demonstrate the ankle mortise to be intact and symmetric. The joint spaces are preserved. The osseous structures are intact. Large calcaneal spurs are noted. No evidence of a cute fracture or dislocation. There is soft tissue tissue ossifications are seen. There is deformity of one of the tarsal bones on the lateral view which could be correlated clinicall y. IMPRESSION: 1. Soft tissue swelling with no definite fracture of the ankle. Spur along the medial malleolus and l arge plantar calcaneal spurs 2. On the lateral view there is some deformity of one of the mid tarsal bones which could be correlat ed with foot x-ray if there is point tenderness in this region.
== END | disposition home or self-care (01) ==
LOC: RADXRYALE 12:59
PROVIDERS: ATTEND Internal Medicine
DX: M79.89 Other specified soft tissue disorders (principal); M77.31 Calcaneal spur, right foot

== ENCOUNTER → 2020-01-17 | Outpatient (CLI) | payer BC | END | disposition home or self-care (01) | LOC: LABWHC1 15:20 | PROVIDERS: ATTEND Internal Medicine | DX: R05 Cough (principal); R09.81 Nasal congestion | CPT/HCPCS: U0003; C9803 ==

== ENCOUNTER → 2020-03-05 | Outpatient (CLI) | payer BC | END | disposition home or self-care (01) | LOC: LABWHC1 15:55 | PROVIDERS: ATTEND Internal Medicine | DX: R52 Pain, unspecified (principal); Z20.828 Contact with and (suspected) exposure to other viral communicable diseases | CPT/HCPCS: U0003; C9803 ==

== ENCOUNTER → 2021-02-06 | Outpatient (CLI) | payer BC | END | disposition home or self-care (01) | LOC: LABWHC1 12:29 | PROVIDERS: ATTEND Internal Medicine | DX: R11.2 Nausea with vomiting, unspecified (principal); Z20.828 Contact with and (suspected) exposure to other viral communicable diseases | CPT/HCPCS: U0003; C9803; U0005 ==

== ENCOUNTER → 2021-04-23 | Outpatient (CLI) | payer BC ==
--- NOTE | 2021-04-23 12:49 | CT ---
EXAMINATION TYPE: CT brain wo con DATE OF EXAM: 04/23/2021 COMPARISON: None. HISTORY: Fall 4 days ago with posterior head injury, left sided head injury 2 days after that. Headac he, delayed responses. CT DLP: 1504 mGycm. Automated Exposure Control for Dose Reduction was Utilized. TECHNIQUE: CT scan of the head is performed without contrast. FINDINGS: Suboptimal as there is some motion artifact degradation. There is no obvious acute intrac ranial hemorrhage or midline shift identified. The ventricles and sulci are within normal limits in size. Rice-white matter differentiation fairly well-preserved. The calvarium is intact. The globes a re intact and the visualized sinuses are clear. IMPRESSION: No acute intracranial hemorrhage or midline shift is seen.
== END | disposition home or self-care (01) ==
LOC: RADCTMAIN 11:15
PROVIDERS: ATTEND Internal Medicine
DX: R51.9 Headache, unspecified (principal)
CPT/HCPCS: 70450

== ENCOUNTER 2022-07-22 12:26 | Emergency (ER) | payer BC ==
[2022-07-22 13:13] VITALS: RESP 20
--- NOTE | 2022-07-22 13:49 | ED ---
General Adult HPI - General Chief complaint: Psychiatric Symptoms Stated complaint: mental health Time Seen by Provider: 07/22/22 13:14 Source: patient, RN notes reviewed, old records reviewed Mode of arrival: ambulatory Limitations: no limitations - History of Present Illness Initial comments: Patient is a 42-year-old male who presents emergency department for psychiatric evaluation. Was at his PCPs office when he did reveal that he's been having suicidal thoughts for the last few months secondary to worsening stressors. Endorses worsening life stressors including technical homelessness, family stressors, recent loss of both of his parents. Denies any suicidal attempts, plans. Denies any homicidal ideations, attempts, plans. Denies any visual or auditory hallucinations. Denies any history of psychiatric illness. Does have a history of hypertension, asthma, diabetes. Presents for further evaluation at this time. His no other acute complaints at this time. Did have a headache earlier with some tearing of both eyes but has been doing with some mild upper respiratory congestion. Currently asymptomatic. - Related Data Home Medications Medication Instructions Recorded Confirmed Ibuprofen [Motrin Ib] 400 mg PO TID PRN 11/02/18 11/02/18 Previous Rx's Medication Instructions Recorded Atorvastatin [Lipitor] 20 mg PO HS #30 tab 11/04/18 lisinopriL [Zestril] 5 mg PO DAILY #30 tab 11/04/18 Allergies Allergy/AdvReac Type Severity Reaction Status Date / Time No Known Allergies Allergy Verified 07/22/22 13:13 Review of Systems ROS Statement: Those systems with pertinent positive or pertinent negative responses have been documented in the HPI. Review of Systems: CONST: Denies fever EYES: Denies blurry vision ENT: Denies nasal congestion C/V: Denies Chest pain RESP: Denies shortness of breath GI: Denies abdominal pain : Denies dysuria SKIN: Denies rash. MSK: Denies joint pain. NEURO: Denies headache PSYCH: Denies homicidal ideations/plans/attempts. Denies visual or auditory hallucinations. He endorses suicidal ideations. Denies any plans or attempts. ROS Other: All systems not noted in ROS Statement are negative. Past Medical History Past Medical History: Hypertension, Osteoarthritis (OA), Sleep Apnea/CPAP/BIPAP Additional Past Medical History / Comment(s): Carpel Tunnel in both hands History of Any Multi-Drug Resistant Organisms: None Reported Past Surgical History: Hernia Repair Past Anesthesia/Blood Transfusion Reactions: No Reported Reaction Past Psychological History: No Psychological Hx Reported Smoking Status: Never smoker Past Alcohol Use History: Occasional Past Drug Use History: None Reported - Past Family History Mother Family Medical History: No Reported History General Exam - General Exam Comments Initial Comments: General: Appears in no acute distress. HEAD: Normal with no signs of head trauma. EYES: EOMI ENT: Hearing grossly intact, normal oropharynx. RESPIRATORY: Clear breath sounds bilaterally. No wheezes, rales, or rhonchi. C/V: Regular rate and rhythm. S1 and S2 auscultated, peripheral pulses 2+ and intact throughout ABD: Abd is soft, nontender, nondistended EXT: Normal range of motion, no obvious deformity SKIN: No rashes or lesions observed on exposed skin. NEURO: Alert and oriented 4. Limitations: no limitations Course Vital Signs 07/22/22 07/22/22 13:09 15:11 Temperature 98.1 F 97.8 F Pulse Rate 82 97 Respiratory 20 20 Rate Blood Pressure 141/87 144/89 O2 Sat by Pulse 97 99 Oximetry Medical Decision Making - Medical Decision Making Was pt. sent in by a medical professional or institution (, PA, [employer] SALES [employer]OCIATE, urgent care, hospital, or prison...) When possible be specific @ -Sent by PCP for psychiatric evaluation Did you speak to anyone other than the patient for history (EMS, parent, family, police, friend...)? What history was obtained from this source @ -No Did you review nursing and triage notes (agree or disagree)? Why? @ -I reviewed and agree with nursing and triage notes Were old charts reviewed (outside hosp., previous admission, EMS record, old EKG, old radiological studies, urgent care reports/EKG's, prison records)? Report findings @ -No old charts were reviewed Differential Diagnosis (chest pain, altered mental status, abdominal pain women, abdominal pain men, vaginal bleeding, weakness, fever, dyspnea, syncope, headache, dizziness, GI bleed, back pain, seizure, CVA, palpatations, mental health, musculoskeletal)? @ -Differential Mental Health Depression, anxiety, bipolar, psychosis, schizophrenia, borderline personality, situational depression, adjustment disorder, behavioral disorder, brain tumor, malingering, substance abuse, encephalopathy, medication reaction, dementia, hypothyroidism, degenerative neurologic disorder, lupus.... This is not meant to be all-inclusive list EKG interpreted by me (3pts min.). @ -None done X-rays interpreted by me (1pt min.). @ -None done CT interpreted by me (1pt min.). @ -None done U/S interpreted by me (1pt. min.). @ -None done What testing was considered but not performed or refused? (CT, X-rays, U/S, labs)? Why? @ -None What meds were considered but not given or refused? Why? @ -None Did you discuss the management of the patient with other professionals (professionals i.e. DrRuthann, PA, [employer] SAL[employer]OCIATE, lab, RT, psych nurse, public health social worker, ticket writer, teacher, job placement officer, case therapist)? Give summary @ -No Was smoking cessation discussed for >3mins.? @ -No Was critical care preformed (if so, how long)? @ -No Were there social determinants of health that impacted care today? How? (Homelessness, low income, unemployed, alcoholism, drug addiction, transportation, low edu. Level, literacy, decrease access to med. care, alf, rehab)? @ -No Was there de-escalation of care discussed even if they declined (Discuss DNR or withdrawal of care, Hospice)? DNR status @ -No What co-morbidities impacted this encounter? (DM, HTN, Smoking, COPD, CAD, Cancer, CVA, ARF, Chemo, Hep., AIDS, mental health diagnosis, sleep apnea, morbid obesity)? @ -None Was patient admitted / discharged? Hospital course, mention meds given and route, prescriptions, significant lab abnormalities, going to OR and other p ertinent info. @ -Based on the patient's presentation and physical exam, do believe he requires psychiatric evaluation. Suicide precautions placed. Sitter ordered. BAT is 0. UDS is pending. Vital signs within except for limits. Was placed in green scrubs. At this time, patient is medically cleared for evaluation by psychiatry. His physician is pending psychiatric evaluation. EPS is notified. Patient evaluated by EPS. Cleared for discharge home. Discharged with safety plan. Does not meet inpatient criteria for psychiatry. Undiagnosed new problem with uncertain prognosis? @ -No Drug Therapy requiring intensive monitoring for toxicity (Heparin, Nitro, Insulin, Cardizem)? @ -No Were any procedures done? @ -No Diagnosis/symptom? @ -Encounter for psychiatric evaluation, suicidal ideations. Acute, or Chronic, or Acute on Chronic? @ -Acute Uncomplicated (without systemic symptoms) or Complicated (systemic symptoms)? @ -Uncomplicated Side effects of treatment? @ -No Exacerbation, Progression, or Severe Exacerbation? @ -No Poses a threat to life or bodily function? How? (Chest pain, USA, AL, pneumonia, PE, COPD, DKA, ARF, appy, cholecystitis, CVA, Diverticulitis, Homicidal, Suicidal, threat to staff... and all critical care pts) @ -Yes Disposition Clinical Impression: Encounter for psychological evaluation Disposition: HOME SELF-CARE Condition: Good Additional Instructions: follow safety plan and follow up resources Is patient prescribed a controlled substance at d/c from ED?: No Referrals: Sonia Oviedo MD [Primary Care Provider] - 1-2 days Forms: Outpatient Counseling Time of Disposition: 14:58
[2022-07-22 15:12] VITALS: BP 144/89; PULSE 97; TEMP 97.8
== END 2022-07-22 15:12 | disposition home or self-care (01) ==
LOC: EC 12:26
DX: Z04.6 Encounter for general psychiatric examination, requested by authority (principal); R45.851 Suicidal ideations; E11.9 Type 2 diabetes mellitus without complications; I10 Essential (primary) hypertension; J45.909 Unspecified asthma, uncomplicated; Z59.00 Homelessness unspecified
CPT/HCPCS: 82075; 99284